=== PATIENT | female | born 1955 | race Caucasian/White ===

== ENCOUNTER 2017-04-07 16:51 | Outpatient (CLI) | payer BC ==
[2009-06-17 07:23] VITALS: BMI 18.9
== END 2017-04-07 23:59 | disposition home or self-care (01) ==
LOC: D.MAMMO 16:51
DX: Z12.31 Encounter for screening mammogram for malignant neoplasm of breast (principal)

== ENCOUNTER → 2017-10-02 08:27 | Outpatient (CLI) | payer BC ==
[2009-06-17 07:23] VITALS: BMI 18.9
[2017-10-02 09:35] LABS: PROTIME 12.8 SECONDS (11.6-15.0); UDS - AMPHET NEGATIVE QUAL (NEGATIVE); UDS - BARB NEGATIVE QUAL (NEGATIVE); UDS - BENZO NEGATIVE QUAL (NEGATIVE); UDS - COCAINE NEGATIVE QUAL (NEGATIVE); UDS - OPIATE NEGATIVE QUAL (NEGATIVE); UDS - PCP NEGATIVE QUAL (NEGATIVE); UDS - THC NEGATIVE QUAL (NEGATIVE)
[2017-10-02 09:41] LABS: ALBUMIN 3.7 g/dL (3.4-5.0); ANION GAP 10.8 mmol/L (8-16); BILIRUBIN - TOTAL 0.79 mg/dL (0.2-1.3); CARBON DIOXIDE 29.2 mmol/L (21.0-32.0); CREATININE - SERUM 1.3 mg/dL (0.6-1.3)
[2017-10-03 07:28] LABS: ALPHA FETOPROTEIN -(TUMOR MRK) 2.7 ng/mL (0.0-8.3)
[2017-10-06 08:21] LABS: HCVGENO - HEP C QUANT 301000 IU/mL (()); HCVGENO - LOG 10 5.479 (())
== END | disposition home or self-care (01) ==
LOC: D.US 08:27
PROVIDERS: Internal Medicine Gastroenterology
DX: B18.2 Chronic viral hepatitis C (principal)

== ENCOUNTER → 2018-11-28 08:38 | Outpatient (CLI) | payer OTHER ==
[2009-06-17 07:23] VITALS: BMI 18.9
== END | disposition home or self-care (01) ==
LOC: D.US 08:30
PROVIDERS: ATTEND Internal Medicine Gastroenterology
DX: B18.2 Chronic viral hepatitis C (principal)

== ENCOUNTER 2019-03-25 08:00 | Outpatient (CLI) | payer OTHER ==
[2009-06-17 07:23] VITALS: BMI 18.9
== END 2019-03-25 23:59 | disposition home or self-care (01) ==
LOC: D.MAMMO 08:00
PROVIDERS: ATTEND Family Medicine
DX: Z12.31 Encounter for screening mammogram for malignant neoplasm of breast (principal)

== ENCOUNTER 2019-05-03 19:00 | Outpatient (CLI) | payer OTHER ==
[2009-06-17 07:23] VITALS: BMI 18.9
== END 2019-05-03 23:59 | disposition home or self-care (01) ==
LOC: D.MAMMO 19:00
PROVIDERS: ATTEND Family Medicine
DX: R92.8 Other abnormal and inconclusive findings on diagnostic imaging of breast (principal)